=== PATIENT | female | born 1985 | race African-American/Black ===

== ENCOUNTER 2018-10-31 23:51 | Emergency (ER) | payer SELFPAY ==
[~2018-10-31] VITALS: Ht 165.1 cm; Wt 59.0 kg
[2018-10-31 23:54] VITALS: BP 157/86
== END 2018-11-01 | disposition left against medical advice (07) ==
LOC: ER 23:51
DX: R51 Headache (principal); Z53.21 Procedure and treatment not carried out due to patient leaving prior to being seen by health care provider
CPT/HCPCS: 99283